=== PATIENT | female | born 1995 | race Hispanic/Latino ===

== ENCOUNTER 2023-04-10 11:46 | Day surgery (SDC) | payer SELFPAY ==
[2023-04-10] MEDS ORDERED: hydrALAZINE 20 MG/ML VIAL SLOW IVP PRN (12:37)
[2023-04-10 12:42] VITALS: BMI 24.7
[2023-04-10] MEDS ORDERED: Acetaminophen 500 MG TAB PO SCH (13:00)
[2023-04-10] MEDS ORDERED: Ondansetron ODT 4 MG TAB PO PRN (13:06)
[2023-04-10 14:37] LABS: ALT (SGPT) 6 U/L (8-55); AST (SGOT) 12 U/L (5-34); Albumin 3.4 g/dL (3.5-5.0); Alkaline Phosphatase 44 U/L (40-110); Anion Gap 13 mmol/L (10-20); BUN (Urea Nitrogen) 4 mg/dL (7.0-18.7); Bilirubin, Total 0.2 mg/dL (0.2-1.2); Calc. Creatinine Clearance 146 mL/min (70-130); Calcium 8.7 mg/dL (7.8-10.44); Carbon Dioxide 20 mmol/L (22-29); Chloride 106 mmol/L (98-107); Estimated GFR 126; Glucose 112 mg/dL (70-105); Potassium 3.2 mmol/L (3.5-5.1); Protein, Total 6.4 g/dL (6.0-8.3); Sodium 136 mmol/L (136-145)
[2023-04-10 14:43] LABS: #Monocytes 0.4 10x3/uL (0.0-1.1); %Basophils 0.1 % (0.0-2.0); %Eosinophils 0.2 % (0.0-6.0); %Lymphocytes 9.9 % (18.0-47.0); %Monocytes 3.7 % (0.0-10.0); %Neutrophils 85.6 % (40.0-75.0); Hemoglobin 9.7 g/dL (12.0-15.5); Mean Corpuscular HGB CONC 34.9 g/dL (32.0-36.0); Mean Corpuscular Hemoglobin 30.2 pg (27.0-33.0); Mean Corpuscular Volume 86.6 fl (81.6-98.3); Mean Platelet Volume 9.4 fl (7.4-10.4); Platelet Count 264 10x3/uL (150-450); RBC Distribution Width 12.5 % (11.5-14.5); Red Blood Cell (RBC) Count 3.21 10x6/uL (3.90-5.03); White Blood Cell (WBC) Count 9.4 10x3/uL (3.5-10.5)
[2023-04-10 14:55] LABS: Syphilis Antibody Nonreactive (Nonreactive); Syphilis Antibody Index 0.03 S/CO (<1.00 Non-Reactive)
[2023-04-10 14:57] LABS: HBSAg Index 0.14 S/CO (0-0.99); HIV (1/2) Antibody/Antigen Non-Reactive (NonReactive); HIV 1/2 INDEX 0.05 S/CO (<1.00); Hep B Surf Ag - L&D Non-Reactive S/CO (NonReactive)
[2023-04-10 15:11] LABS: Bilirubin Neg (Negative); Blood, Urine 25 (Negative); Clarity Clear (Clear); Glucose, Urine (Dipstick) Normal (Negative); Ketone, Urine Negative (Negative); Leukocyte Negative (Negative); Nitrite Negative (Negative); Protein, Urine (Dipstick) Negative (Neg-Trace); Specific Gravity, Urine 1.015 (1.005-1.030); Urobilinogen Normal mg/dL (Less than 2)
[2023-04-10 15:53] LABS: WBC/HPF 0-3 HPF (0-3)
[2023-04-10 15:54] LABS: Bacteria/HPF 2+ HPF (None Seen); Calcium Oxalate Crystals 2+ HPF (None Seen); Mucous/LPF 2+ LPF (<2+)
[2023-04-10 15:55] LABS: Broad Cast 0-3 LPF (None Seen)
[2023-04-10 16:46] LABS: Iron 51 ug/dL (50-170); Iron Binding Capacity, Total 365 mcg/dL (265-497)
[2023-04-11 03:20] LABS: Hep C IgG Ab Non-Reactive S/CO (NonReactive); Hep C Index 0.08 S/CO (0-0.79)
[2023-04-11 11:03] LABS: Chlamydia by PCR, Vaginal Swab Not Detected (NotDetected); GC by PCR, Vaginal Swab Not Detected (NotDetected)
== END 2023-04-10 17:01 | disposition home or self-care (01) ==
LOC: CSHLD/OP 11:46
PROVIDERS: ATTEND Family Medicine
DX: O26.892 Other specified pregnancy related conditions, second trimester (principal); R10.30 Lower abdominal pain, unspecified; O23.42 Unspecified infection of urinary tract in pregnancy, second trimester; R35.0 Frequency of micturition; R30.0 Dysuria; O26.832 Pregnancy related renal disease, second trimester; N20.0 Calculus of kidney; O99.012 Anemia complicating pregnancy, second trimester; D64.9 Anemia, unspecified; O99.282 Endocrine, nutritional and metabolic diseases complicating pregnancy, second trimester; E86.0 Dehydration; Z88.0 Allergy status to penicillin; Z88.8 Allergy status to other drugs, medicaments and biological substances; Z79.899 Other long term (current) drug therapy
CPT/HCPCS: 36415; 76775; 76815; 80053; 81001; 82728; 83540; 83550; 85025; 86762; 86780; 86803; 86850; 86900; 86901; 87077; 87086; 87491; 87591; Q0162